=== PATIENT | male | born 1950 | race Caucasian/White ===

== ENCOUNTER 2016-07-27 07:47 | Observation (INO) | payer MEDICARE, BC ==
[~2016-07-27] VITALS: Ht 185.4 cm; Wt 92.6 kg
--- NOTE | 2016-07-28 06:22 | ER ---
ADMIT: 07/27/2016 RM/LOC: [facility] MR#: [id number] [address] [id number] [address] [place] [address] Emergency Room Report SEX: M AGE: 66 : 1950 DATE: 07/27/2016 TIME: 0747 hours. Please refer to my T-sheet for complete H and P. HISTORY OF PRESENT ILLNESS: Briefly, the patient is a 66-year-old, who comes in with dizziness, started about 5 this morning, came on kind of a sudden. It is still present. He has been vomiting, with that he rates pain 0/10. He does have a complex history and that he just had a carotid angiogram done through his right groin on Wednesday. According to the report, he had about a 60% carotid stenosis on the right. He is rating the pain 0/10. He says, he is unable to walk because he is unstable. PHYSICAL EXAMINATION: VITAL SIGNS: Blood pressure 119/85, pulse 77, respirations 22, temp 97.5, sat 98%. GENERAL: He is no acute distress. HEENT: Grossly normal. LUNGS: Clear. HEART: Regular. ABDOMEN: Soft. SKIN: No rash. NEURO: He really does not have any focal findings, just this vague dizziness. He has maybe a stroke scale of 2. EMERGENCY DEPARTMENT COURSE: CT scan of his brain was negative. CBC normal except platelets 148. Chemistries normal except glucose of 172. Troponin was 0.076. EKG was sinus rhythm, rate of 54, diffuse changes were noted. CAT scan of his brain was negative. We gave him 4 aspirin. I talked to Dr. King who is on-call for city call. We will admit to the hospital. ASSESSMENT: 1. Dizziness. 2. Elevated troponin. 3. Nausea and vomiting. 4. Status post angiogram. PLAN: Admit to the hospital. Ren Casanova MD/ mari JOB #: [id number] CC: Jose King DO, Attending Physician Jose King DO, Family Physician
[2016-07-29] MEDS ORDERED: JANUMET 50-1,01 EACH PO (06:39)
[2016-07-29] MEDS ORDERED: GLYBURIDE5 MG PO (06:39)
[2016-07-29] MEDS ORDERED: TENORMIN DPS50 MG PO (06:39)
[2016-07-29] MEDS ORDERED: ASPIRIN325 MG PO (06:40)
[2016-07-29] MEDS ORDERED: ZESTRIL DPS20 MG PO (06:40)
[2016-07-29] MEDS ORDERED: FARXIGA5 MG PO (06:40)
[2016-07-29] MEDS ORDERED: LIPITOR DPS10 MG PO (06:40)
[2016-07-29] MEDS ORDERED: MULTIVITAMINS1 EAC1 PO (06:40)
[2016-07-29] MEDS ORDERED: LEVEMIR FL100 UNIT/1 SQ (06:40)
[2016-07-29] MEDS ORDERED: ANTIVERT-DPS25 MG PO (06:41)
== END 2016-07-28 13:50 | disposition home or self-care (01) ==
LOC: ER 07:47 → 4PCU 09:37
PROVIDERS: ADMIT Internal Medicine
DX: R42 Dizziness and giddiness (principal); I10 Essential (primary) hypertension; E11.9 Type 2 diabetes mellitus without complications; J30.9 Allergic rhinitis, unspecified; R79.89 Other specified abnormal findings of blood chemistry; Z90.49 Acquired absence of other specified parts of digestive tract; Z79.899 Other long term (current) drug therapy